=== PATIENT | male | born 1985 | race Caucasian/White ===

== ENCOUNTER 2016-08-07 21:49 | Emergency (ER) | payer SELFPAY ==
[~2016-08-07] VITALS: Ht 175.3 cm; Wt 68.2 kg
[2016-08-07 21:53] VITALS: Ht 175.3 cm; Wt 68.2 kg
--- NOTE | 2016-08-07 21:58 | ERD ---
ER Documentation Chief Complaint Date/Time DATE: 08/07/16 TIME: 21:57 Chief Complaint medical clearance,on probation,drank alcohol when visited by prob officer HPI This is a 30-year-old male brought in by EMS after being arrested by civil preparedness officer. Patient started going "comatose ". Patient is easily arousable and is essentially refusing to speak to us. He has no evidence of trauma. According to EMS, patient admits to drinking alcohol at the scene. ROS All systems reviewed and are negative except as per history of present illness. Medications Home Meds No Active Prescriptions or Reported Meds Allergies Allergies: Coded Allergies: No Known Allergy (Unverified , 08/07/16) PMhx/Soc History of Surgery: No Anesthesia Reaction: No Hx Neurological Disorder: No Hx Respiratory Disorders: No Hx Cardiac Disorders: No Hx Psychiatric Problems: No Hx Miscellaneous Medical Probl: No Hx Alcohol Use: Yes (OCCASSIONAL) Hx Substance Use: No Hx Tobacco Use: Yes (1/2 PACK/DAY) Physical Exam Vitals Vital Signs Date Time Temp Pulse Resp B/P Pulse Ox O2 Delivery O2 Flow Rate FiO2 08/07/16 21:53 97.7 79 18 120/85 100 Physical Exam Const: [] Head: Atraumatic Eyes: Normal Conjunctiva ENT: Normal External Ears, Nose and Mouth. Neck: Full range of motion..~ No meningismus. Resp: Clear to auscultation bilaterally Cardio: Regular rate and rhythm, no murmurs Abd: Soft, non tender, non distended. Normal bowel sounds Skin: No petechiae or rashes Back: No midline or flank tenderness Ext: No cyanosis, or edema Neur: Awake and alert Psych: Normal Mood and Affect Procedures/MDM Medical decision-makin-year-old male here for medical clearance for half-way. I see no evidence of trauma. Patient is alert and oriented. Stable vital signs. Normal blood sugar. Discharged in police custody. Departure Diagnosis: Primary Impression: Encounter for medical clearance for patient hold Additional Impression: Medical clearance for incarceration Condition: Stable Patient Instructions: [facility] Clearance JHOAN WELLS Aug 07, 2016 21:58
== END 2016-08-07 22:02 ==
LOC: E/R 21:49
DX: Z02.89 Encounter for other administrative examinations (principal); F17.210 Nicotine dependence, cigarettes, uncomplicated
CPT/HCPCS: 99283